=== PATIENT | male | born 1980 | race Caucasian/White ===

== ENCOUNTER 2024-07-14 18:03 | Emergency (ER) | payer BC, MEDICAID ==
[~2024-07-14] VITALS: Ht 175.3 cm; Wt 90.7 kg
[2024-07-14 19:17] LABS: Eosinophils # (auto) 0.1 10 ^3/uL (0-0.8); Eosinophils % (auto) 0.6 % (0.0-7.0); Hemoglobin 18.6 g/dL (13.5-17.5); Lymphocytes # (auto) 0.9 10 ^3/uL (0.4-5.4)
[2024-07-14 19:18] LABS: Basophils # (auto) 0 10 ^3/uL (0-0.2); Basophils % (auto) 0.2 % (0.0-2.0); Hematocrit 53.8 % (41.0-53.0); Lymphocytes % (auto) 4.4 % (10.0-50.0); Mean Corpuscular Hemoglobin 31.6 pg (28.0-32.0); Mean Corpuscular Hgb Conc. 34.5 g/dL (32.0-36.0); Mean Corpuscular Volume 91.4 fL (80.0-100.0); Monocytes # (auto) 0.9 10 ^3/uL (0-1.3); Monocytes % (auto) 4.1 % (0.0-12.0); Neutrophils % (auto) 90.7 % (37.0-80.0); Platelet Count (auto) 319 10^3/uL (140-450); Red Blood Cells 5.89 10^6/uL (4.5-5.90); Red Cell Distribution Width 13.8 % (11.8-14.3); White Blood Cell 20.9 10^3/uL (4.4-10.8)
[2024-07-14 19:27] LABS: Alanine Aminotransferase 123 U/L (7-40); Albumin 4.9 g/dL (3.2-4.8); Alkaline Phosphatase 73 U/L (46-116); Anion Gap 8 (5-15); Aspartate Aminotransferase 70 U/L (13-40); BUN/Creatinine Ratio 6.3 (10.0-20.0); Bilirubin, Total 0.4 mg/dL (0.2-1.0); Blood Urea Nitrogen 7 mg/dL (9-23); Calcium 10.2 mg/dL (8.7-10.4); Carbon Dioxide 23 mmol/L (20-30); Chloride 108 mmol/L (98-107); Glucose 144 mg/dL (74-106); Lipase 37 U/L (12-53); Potassium 4.3 mmol/L (3.5-5.1); Sodium 139 mmol/L (136-145); Total Protein 8.3 g/dL (5.7-8.2)
[2024-07-14] MEDS: levoFLOXacin 500MG 100 ML IV ONE (19:45)
[2024-07-14] MEDS: SODIUM CHLORIDE 0.9% 1,000 ML IV ONE (20:30)
[2024-07-14] MEDS: MORPHINE SULFATE 4 MG/ML SYR/VIAL IV ONE ×2 (20:30→21:59)
[2024-07-14] MEDS: ONDANSETRON HCL 4 MG/2 ML VIAL IV ONE ×2 (20:30→21:59)
[2024-07-14] MEDS: metroNIDAZOLE 500MG/100ML 100 ML IV ONE (21:11)
[2024-07-14 21:30] VITALS: PULSE 83; RESP 20; O2SAT 93
[2024-07-14 22:21] LABS: COVID19 ANTIGEN SOFIA FIA NEGATIVE (NEGATIVE)
[2024-07-14 23:00] VITALS: BP 115/74; PULSE 95; RESP 15; TEMP 97.6; O2SAT 92
== END 2024-07-14 23:16 | disposition short-term general hospital (02) ==
LOC: ER 18:03 → EEVIPCON 18:03 → ER 23:16
DX: K52.9 Noninfective gastroenteritis and colitis, unspecified (principal); Z20.822 Contact with and (suspected) exposure to COVID-19
CPT/HCPCS: 36415; 74176; 80053; 83690; 85025; 87426; 96365; 96367; 96375; 96376; 99285; J1956; J2270; J2405; J3490; J7030; 96361

== ENCOUNTER 2024-12-13 22:12 | Inpatient (IN) | payer BC, MEDICAID ==
[~2024-12-13] VITALS: Ht 175.3 cm; Wt 111.7 kg
[2024-12-13] MEDS: SODIUM CHLORIDE 0.9% 1,000 ML IV ONE (22:30)
--- NOTE | 2024-12-13 22:36 | ED.PDOC ---
GI ASSESSMENT HPI Comments 44-year-old male who came to ER for abdominal pain. Patient states about 2 hours ago, he developed sudden onset diffuse abdominal pain, associated both of nausea, vomiting, and loose nonbloody diarrhea. Patient was then started complaining of burning substernal chest pains. Patient has no history of abdominal surgeries Chief Complaint: Abdominal pain Time Seen by MD: 22:34 Primary Care Provider: ([place]) Reviewed Notes: Nurses Notes Allergies: Coded Allergies: NO KNOWN ALLERGIES (Unverified , 04/05/24) Information Source: Patient Mode of Arrival: Wheelchair Timing: Hours Duration: Since onset Prehospital treatment: None Quality: Cramping, Sharp Vomitus: Watery Stool: Loose, Watery Severity: Moderate Recent: None Pain Location: Diffuse Modifying Factors: Nothing Associated sign and symptoms: Nausea, Vomiting, Diarrhea, Abdominal Pain, Other (Chest pain) Past Medical History Past Medical History (Other): Diverticulitis Surgical History: Denies all surgeries Family History Family History: Reviewed,noncontributory to illness Social History Smoker: Non-Smoker Alcohol: Denies ETOH Use Drugs: Denies Drug Use Lives In: Home Constitutional: denies: chills, diaphoresis, fatigue, fever, malaise, sweats, weakness, others Respiratory: denies: cough, hemoptysis, orthopnea, SOB at rest, shortness of breath, SOB with excertion, stridor, wheezing, others Cardiovascular: reports: chest pain; denies: dizzy spells, diaphoresis, Dyspnea on exertion, edema, irregular heart beat, left arm pain, lightheadedness, palpitations, PND, syncope, others Gastrointestinal: reports: abdominal pain, diarrhea, nausea, vomiting; denies: abdomen distended, blood streaked bowels, constipated, dysphagia, difficulty swa llowing, hematemesis, melena, poor appetite, poor fluid intake, rectal bleeding, rectal pain, others Genitourinary: denies: burning, dysuria, flank pain, frequency, hematuria, incontinence, penile discharge, penile sore, pain, testicle pain, testicle swelling, urgency, others Neurological: denies: dizziness, fainting, headache, left sided numbness, left sided weakness, numbness, paresthesia, pre-existing deficit, right sided numbness, right sided weakness, seizure, speech problems, tingling, tremors, weakness, others Musculoskeletal: denies: back pain, gout, joint pain, joint swelling, muscle pain, muscle stiffness, neck pain, others Integumetry: denies: bruises, change in color, change in hair/nails, dryness, laceration, lesions, lumps, rash, wounds, others Allergic/Immunocompromised: denies: Difficulty Healing, Frequent Infections, Hives, Itching, others Hematologic/Lymphatic: denies: anemia, blood clots, easy bleeding, easy bruising, swollen glands, others Endocrine: denies: excessive hunger, excessive sweating, excessive thirst, excessive urination, flushing, intolerance to cold, intolerance to heat, unex plained weight gain, unexplained weight loss, others Psychiatric: denies: anxiety, bipolar disorder, depression, hopeless, panic disorder, schizophrenia, sleepless, suicidal, others Physical Exam General Appearance: No Apparent Distress, Normal HEENT: Normal ENT Inspection, Pharynx Normal, TMs Normal Neck: Full Range of Motion, Non-Tender, Normal, Normal Inspection Respiratory: Chest Non-Tender, Lungs Clear, No Accessory Muscle Use, No Respiratory Distress, Normal Breath Sounds Cardiovascular: No Edema, No JVD, No Murmur, No Gallop, Normal Peripheral Pulses, Regular Rate/Rhythm Breast Exam: Deferred Gastrointestinal: Diffuse, No Organomegaly, No Pulsatile Mass, Normal Bowel Sounds, Soft, Tenderness Genitalia: Deferred Pelvic: Deferred Rectal: Deferred Extremities: No calf tenderness, Normal capillary refill, Normal inspection, Normal range of motion, Non-tender, No pedal edema Musculoskeletal : Apperance: Normal Neurologic: Alert, corrections identification technician II-XII nml as Tested, No Motor Deficits, Normal Affect, Normal Mood, No Sensory Deficits Cerebellar Function: Normal Reflexes: Normal Skin: Dry, Normal Color, Warm Lymphatic: No Adenopathy Was a procedure done? Was a procedure done?: No GI differential Dx Differential Diagnosis: Cholecystitis, Diverticular disease, Gastritis/PUD, Gastroenteritis, Hernia, Pancreatitis, UTI, Urolithiasis, Dehydration, Electrolyte Imbalance, Food Poisoning X-Ray, Labs, Meds, VS Vital Signs Date Time Temp Pulse Resp B/P (MAP) Pulse Ox O2 Delivery O2 Flow Rate FiO2 12/14/24 01:11 98 20 125/77 12/14/24 00:28 74 18 115/60 12/14/24 00:00 86 12/13/24 23:27 98.0 72 22 115/60 (78) 96 98.0 12/13/24 22:25 76 12/13/24 22:17 98.2 82 20 117/61 (79) 97 Lab Test 12/14/24 00:37 12/13/24 23:17 12/13/24 22:20 Range/Units Lactic Acid Level 2.7 *H 2.6 *H 0.4-2.0 mmol/L Troponin I High Sensitivity 65 *H 67 *H </=54 ng/L White Blood Count 16.9 H 4.4-10.8 10^3/uL Red Blood Count 5.73 4.5-5.90 10^6/uL Hemoglobin 17.7 H 13.5-17.5 g/dL Hematocrit 51.8 41.0-53.0 % Mean Corpuscular Volume 90.4 80.0-100.0 fL Mean Corpuscular Hemoglobin 30.9 28.0-32.0 pg Mean Corpuscular Hemoglobin Concent 34.1 32.0-36.0 g/dL Red Cell Distribution Width 13.1 11.8-14.3 % Platelet Count 266 140-450 10^3/uL Mean Platelet Volume 7.6 6.9-10.8 fL Neutrophils (%) (Auto) 37.0-80.0 % Lymphocytes (%) (Auto) 10.0-50.0 % Monocytes (%) (Auto) 0.0-12.0 % Basophils (%) (Auto) 0.0-2.0 % Neutrophils # (Auto) 1.6-8.6 10 ^3/uL Lymphocytes # (Auto) 0.4-5.4 10 ^3/uL Monocytes # (Auto) 0-1.3 10 ^3/uL Differential Total Cells Counted 100.0 100 Neutrophils % (Manual) 90 H 37.0-80.0 Band Neutrophils % (Manual) 4 Lymphocytes % (Manual) 2 L 10.0-50.0 Monocytes % (Manual) 4 0-12 Eosinophils % (Manual) 0 0-7 Basophils % (Manual) 0 0.0-2.0 Metamyelocytes % (manual) 0 Myelocytes % (Manual) 0 Promyelocytes % (Manual) 0 Blast Cells % (Manual) 0 Reactive Lymphocytes 0 Platelet Estimate Adequate Clumped Platelets Few Sodium Level 138 136-145 mmol/L Potassium Level 4.3 3.5-5.1 mmol/L Chloride Level 106 98-107 mmol/L Carbon Dioxide Level 23 20-31 mmol/L Anion Gap 9 5-15 Blood Urea Nitrogen 12 9-23 mg/dL Creatinine 0.90 0.700-1.30 mg/dL Glomerular Filtration Rate Calc 109 >90 mL/min BUN/Creatinine Ratio 13.3 10.0-20.0 Serum Glucose 162 H 74-106 mg/dL Calcium Level 10.4 8.7-10.4 mg/dL Total Bilirubin 0.6 0.2-1.0 mg/dL Aspartate Amino Transferase (AST) 44 H 13-40 U/L Alanine Aminotransferase (ALT) 88 H 7-40 U/L Alkaline Phosphatase 56 46-116 U/L Total Protein 7.8 5.7-8.2 g/dL Albumin 4.7 3.2-4.8 g/dL Lipase 36 12-53 U/L Current Medications Medications (Trade) Dose Ordered Sig/Harmony Route Start Time Stop Time Status Last Admin Sodium Chloride 1,000 ml @ 1,000 mls/hr Q1H ONCE IV 12/13/24 22:30 12/13/24 23:29 DC 12/13/24 22:30 Ondansetron HCl (Zofran) 4 mg ONCE ONCE IV 12/13/24 22:30 12/13/24 22:31 DC 12/14/24 00:30 Pantoprazole Sodium (Protonix) 40 mg ONCE ONCE IV 12/13/24 22:30 12/13/24 22:31 DC 12/14/24 00:29 Morphine Sulfate 4 mg ONCE ONCE IV 12/13/24 22:30 12/13/24 22:31 DC 12/14/24 00:28 Time of 1ST Reevaluation: 22:29 Reevaluation 1ST: Unchanged Patient Education/Counseling: Diagnosis, Treatment Family Education/Counseling: No Family Present Departure 1 Departure Time of Disposition: 01:24 (Patient presented with chest pain that was concerning for possible STEMI, ACS, PE, Pneumonia, Muscle Strain, COPD, Dissection. Data: 1. I ordered and reviewed the result of at least 3 labs including a CBC, BMP, and Troponin. 2. I independently interpreted the following tests: EKG which shows _ sinus arrhythmia and Chest X-ray which shows benign chest.Risk:This patient has a high risk of morbidity due to further diagnostic testing or treatment and may suffer from an acute cardiac or respiratory disorder. Workup reveals elevated troponin, concern for ACS, concern for colitis and patient should be admitted for further workup and possible expert consulta tion. ) Impression: Primary Impression: Acute chest pain Additional Impressions: Projectile vomiting with nausea Colitis Dehydration Disposition: ADMITTED INPATIENT Admit to: Med Surg Condition: Serious Critical Care Note Critical Care Time?: No Stability Stability form required: No Heart Score Heart Score: Heart Score Response (Comments) Value History N/A 0 EKG N/A 0 Age N/A 0 Risk Factors N/A 0 Troponin N/A 0 Total 0 I personally scribed for KIRSTY ABEBE MD ([email or web address]) on 12/13/24 at 22:36. Electronically submitted by Marcelino Cummins ([email or web address]). KIRSTY ABEBE MD Dec 13, 2024 22:36
[2024-12-13 22:39] LABS: Hematocrit 51.8 % (41.0-53.0); Hemoglobin 17.7 g/dL (13.5-17.5); Mean Corpuscular Hemoglobin 30.9 pg (28.0-32.0); Mean Corpuscular Hgb Conc. 34.1 g/dL (32.0-36.0); Mean Corpuscular Volume 90.4 fL (80.0-100.0); Platelet Count (auto) 266 10^3/uL (140-450); Red Blood Cells 5.73 10^6/uL (4.5-5.90); Red Cell Distribution Width 13.1 % (11.8-14.3); White Blood Cell 16.9 10^3/uL (4.4-10.8)
[2024-12-13 22:42] LABS: Basophils % (manual) 0 (0.0-2.0); Blast Cells 0; Eosinophils % (manual) 0 (0-7); Metamyelocytes % 0; Myelocytes % 0; Promyelocytes % 0; Reactive Lymphocytes 0
[2024-12-13 23:01] LABS: Albumin 4.7 g/dL (3.2-4.8); Alkaline Phosphatase 56 U/L (46-116); Anion Gap 9 (5-15); BUN/Creatinine Ratio 13.3 (10.0-20.0); Bilirubin, Total 0.6 mg/dL (0.2-1.0); Blood Urea Nitrogen 12 mg/dL (9-23); Calcium 10.4 mg/dL (8.7-10.4); Carbon Dioxide 23 mmol/L (20-31); Chloride 106 mmol/L (98-107); Lipase 36 U/L (12-53); Potassium 4.3 mmol/L (3.5-5.1); Sodium 138 mmol/L (136-145); Total Protein 7.8 g/dL (5.7-8.2)
[2024-12-13 23:13] LABS: Alanine Aminotransferase 88 U/L (7-40); Aspartate Aminotransferase 44 U/L (13-40); Glucose 162 mg/dL (74-106); Lactic Acid w/Reflex 2.6 mmol/L (0.4-2.0)
[2024-12-13 23:24] LABS: Band Neutrophils % (manual) 4; Lymphocytes % (manual) 2 (10.0-50.0); Monocytes % (manual) 4 (0-12)
[2024-12-13 23:25] LABS: Platelet Estimate Adequate
[2024-12-13] MEDS: IOHEXOL 300 MG/ML 100ML BOTTLE IJ ONE (23:30)
[2024-12-14] VITALS (7 sets, daily range): BP systolic 88–129; BP diastolic 52–67; PULSE 61–102; RESP 16–20; TEMP 97.8–98.5; O2SAT 91–100
[2024-12-14] MEDS: MORPHINE SULFATE 4 MG/ML SYR/VIAL IV ONE ×3 (00:28→05:39)
[2024-12-14] MEDS: PANTOPRAZOLE 40 MG/10 ML VIAL INJ IV ONE (00:29)
[2024-12-14] MEDS: ONDANSETRON HCL 4 MG/2 ML VIAL IV ONE ×3 (00:30→05:35)
--- NOTE | 2024-12-14 00:45 | DVH ---
EXAM: XY CHEST PORTABLE CLINICAL HISTORY: severe abdominal pain TECHNIQUE: Single AP view of the chest WID: COMPARISON: CT abdomen same day CT abdomen pelvis from same day FINDINGS: Lines and tubes: None Chest: The heart size and pulmonary vasculature is within normal limits. No pleural effusion, pneumothorax, or consolidation. Linear scarring or atelectasis in the left lung base. Limited depth of inspiration. The osseous structures are grossly intact. IMPRESSION: No acute cardiopulmonary abnormality. Limited depth of inspiration.
--- NOTE | 2024-12-14 01:02 | DVH ---
CT OF THE ABDOMEN AND PELVIS WITH CONTRAST. HISTORY: severe abdominal pain COMPARISON: 07/14/2024 TECHNIQUE: Helical axial CT images of the abdomen and pelvis were obtained with intravenous contrast. Multiplanar reformats. One or more of the following radiation dose reduction techniques were used fo r this examination: automated exposure control, adjustment of the mA and/or kV according to patient s ize, use of iterative reconstruction technique. FINDINGS: Atelectasis/ scarring in the peripheral left lung base. Liver: No discrete hepatic lesions identified. Gallbladder and biliary system: Gallbladder is mildly distended. No sizable, radiopaque cholelithiasi s or biliary ductal dilatation. Pancreas: Negative. Spleen: Negative. Adrenal Glands: Negative. Kidneys and collecting system: No hydroureteronephrosis. Retroperitoneum: No evidence of abdominal aortic aneurysm. Lymph nodes: No discretely enlarged lymph nodes identified. Bowel: Small hiatal hernia. Fluid content in the small bowel as well as throughout the colon. No defi nite evidence to suggest bowel obstruction at this time. Sigmoid diverticulosis without definite CT e vidence of diverticulitis. Normal caliber appendix. No free intraperitoneal air or fluid identified. Pelvis: No sizable bladder calculus. Small fat containing left inguinal hernia. Osseous structures: Chronic appearing grade 2 anterolisthesis of L5 on S1 with bilateral pars defects . IMPRESSION: Fluid content in the small and large bowel is relatively nonspecific but can be seen with enteritis a s well as other malabsorptive conditions. Please correlate clinically. A few other findings as above. HS:Y
--- NOTE | 2024-12-14 02:03 | ECG ---
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
[2024-12-14] MEDS: SODIUM CHLORIDE 0.9% 1,000 ML IV ONE (05:07)
[2024-12-14] MEDS ORDERED: DOCUSATE SOD 100 MG CAP PO PRN (05:45)
[2024-12-14] MEDS: SODIUM CHLORIDE 0.9% 1,000 ML IV SCH (05:54)
[2024-12-14] MEDS: cefTRIAXone 1GM/50ML D5W 50 ML IV SCH (05:58)
[2024-12-14] MEDS ORDERED: NITROGLYCERIN 0.4 MG SL TAB SL PRN (06:15)
[2024-12-14] MEDS ORDERED: MORPHINE SULFATE INJ 2 MG/ml SYRG IV PRN (06:15)
--- NOTE | 2024-12-14 06:15 | DVHHP2 ---
History of Present Illness Reason for Visit: Acute chest pain History of Present Illness The patient is a 44-year-old male with past medical history diverticulitis presented to [facility] ED with complaint of abdominal pain. Patient reports symptoms progressively get worse with diffuse abdominal pain, associated nausea, nonbloody diarrhea, substernal chest pain, getting worse that prompted this visit. Patient was seen and evaluated in the ED, laboratory data shows WBC 16.9, platelets 266, sodium 138, potassium 4.3, BUN 12, creatinine 0.90, GFR 109, glucose 162, AST 44, ALT 88, lipase 36, troponin 65, lactic acid 2.6. Patient was started on IV antibiotic regimen Rocephin, given IV fluid normal saline, please see medication orders section in the computer. On my assessment, patient denies pain at this moment no headache, no dizziness, no nausea or vomiting at this moment, fever, no chills. Patient was admitted for further evaluation and medical management. Past Medical History Diverticulitis Past Surgical History Denies all surgeries Family History Reviewed, noncontributory to the management of this case. Past Social History The patient lives at home, denies smoking, alcohol or illicit drugs abuse. Review of Systems Constitutional: No: Fever, Chills, Sweats, Weakness, Malaise, Other Eyes: No: Pain, Vision change, Conjunctivae inflammation, Eyelid inflammation, Other, Redness ENT: No: Ear pain, Ear discharge, Nose pain, Nose discharge, Nose congestion, Mouth pain, Mouth swelling, Throat pain, Throat swelling, Other Respiratory: No: Cough, Dry, Shortness of breath, SOB with excertion, Wheezing, Hemoptysis, Pleuritic Pain, Sputum, Wheezing, Other Cardiovascular: Chest Pain; No: Palpitations, Orthopnea, Paroxysmal Noc. Dyspnea, Edema, Lt Headedness, Other Gastrointestinal: Nausea, Vomiting, Abdominal Pain, Diarrhea; No: Constipation, Melena, Hematochezia, Other Genitourinary: No Dysuria, No Frequency, No Incontinence, No Hematuria, No Retention, No Other Musculoskeletal: No: other, neck pain, shoulder pain, arm pain, back pain, hand pain, leg pain, foot pain Skin: No: Rash, Lesions, Jaundice, Bruising, Other Neurological: No: Weakness, Numbness, Incoordination, Change in speech, Confusion, Seizures, Other Allergies: Coded Allergies: NO KNOWN ALLERGIES (Unverified , 04/05/24) Medications Current Medications Medications Dose Ordered Sig/Harmony Route Start Time Stop Time Status Last Admin Dose Admin Ceftriaxone Sodium 50 ml @ 100 mls/hr DAILY@09 IV 12/14/24 06:00 12/14/24 05:58 100 MLS/HR Aspirin 81 mg DAILY PO 12/14/24 10:00 Ibuprofen 600 mg Q6HP PRN PO 12/14/24 05:45 Sodium Chloride 1,000 ml @ 60 mls/hr [id number] IV 12/14/24 05:45 12/14/24 05:54 60 MLS/HR Acetaminophen/ Hydrocodone Bitart 1 tab Q4HP PRN PO 12/14/24 05:45 Ondansetron HCl 4 mg Q4HP PRN IV 12/14/24 05:45 Docusate Sodium 100 mg BIDPRN PRN PO 12/14/24 05:45 Morphine Sulfate 2 mg Q4HPRN PRN IV 12/14/24 05:45 Exam Vital Signs Vital Signs Date Time Temp Pulse Resp B/P (MAP) Pulse Ox O2 Delivery O2 Flow Rate FiO2 12/14/24 05:39 101 25 113/69 12/14/24 05:12 98.1 95 98.1 General Appearance: Alert, Oriented X3, Cooperative, No acute distress HEENT: Atraumatic, PERRLA, EOMI, Mucous membr. moist/pink Respiratory: Clear to auscultation, Normal air movement Cardiovascular: Regular rate, Normal S1, Normal S2, No murmurs Abdominal: Normal bowel sounds, Soft, No tenderness, No hepatospenomegaly, No masses Extremities: No clubbing, No cyanosis, No edema, Normal pulses, No tenderness/swelling Skin: No rashes, No breakdown, No significant lesion Neuro: Normal speech, Normal tone, Sensation intact, Cranial nerves 3-12 NL, Reflexes 2+ Psych/Mental Status: Mental status NL, Mood NL Labs/Xrays Labs Test 12/14/24 01:25 12/14/24 00:37 12/13/24 22:20 Range/Units Troponin I High Sensitivity 57 *H </=54 ng/L Lactic Acid Level 2.7 *H 0.4-2.0 mmol/L White Blood Count 16.9 H 4.4-10.8 10^3/uL Red Blood Count 5.73 4.5-5.90 10^6/uL Hemoglobin 17.7 H 13.5-17.5 g/dL Hematocrit 51.8 41.0-53.0 % Mean Corpuscular Volume 90.4 80.0-100.0 fL Mean Corpuscular Hemoglobin 30.9 28.0-32.0 pg Mean Corpuscular Hemoglobin Concent 34.1 32.0-36.0 g/dL Red Cell Distribution Width 13.1 11.8-14.3 % Platelet Count 266 140-450 10^3/uL Mean Platelet Volume 7.6 6.9-10.8 fL Neutrophils (%) (Auto) 37.0-80.0 % Lymphocytes (%) (Auto) 10.0-50.0 % Monocytes (%) (Auto) 0.0-12.0 % Basophils (%) (Auto) 0.0-2.0 % Neutrophils # (Auto) 1.6-8.6 10 ^3/uL Lymphocytes # (Auto) 0.4-5.4 10 ^3/uL Monocytes # (Auto) 0-1.3 10 ^3/uL Differential Total Cells Counted 100.0 100 Neutrophils % (Manual) 90 H 37.0-80.0 Band Neutrophils % (Manual) 4 Lymphocytes % (Manual) 2 L 10.0-50.0 Monocytes % (Manual) 4 0-12 Eosinophils % (Manual) 0 0-7 Basophils % (Manual) 0 0.0-2.0 Metamyelocytes % (manual) 0 Myelocytes % (Manual) 0 Promyelocytes % (Manual) 0 Blast Cells % (Manual) 0 Reactive Lymphocytes 0 Platelet Estimate Adequate Clumped Platelets Few Sodium Level 138 136-145 mmol/L Potassium Level 4.3 3.5-5.1 mmol/L Chloride Level 106 98-107 mmol/L Carbon Dioxide Level 23 20-31 mmol/L Anion Gap 9 5-15 Blood Urea Nitrogen 12 9-23 mg/dL Creatinine 0.90 0.700-1.30 mg/dL Glomerular Filtration Rate Calc 109 >90 mL/min BUN/Creatinine Ratio 13.3 10.0-20.0 Serum Glucose 162 H 74-106 mg/dL Calcium Level 10.4 8.7-10.4 mg/dL Total Bilirubin 0.6 0.2-1.0 mg/dL Aspartate Amino Transferase (AST) 44 H 13-40 U/L Alanine Aminotransferase (ALT) 88 H 7-40 U/L Alkaline Phosphatase 56 46-116 U/L Total Protein 7.8 5.7-8.2 g/dL Albumin 4.7 3.2-4.8 g/dL Lipase 36 12-53 U/L Assessment/Plan Assessment/Plan Acute chest pain Projectile vomiting with nausea Colitis Dehydration Leukocytosis, unspecified Elevated liver enzymes Plan 1. Admit to telemetry unit 2. Breathing treatment 3. Pain control management 4. IV antibiotic management 5. Management of fluids and electrolytes 6. Consultation for hospitalist 7. Diagnostic test chest x-ray 8. DVT prophylaxis-on SCDs 9. Repeat labs CBC, CMP in a.m. 10. Continue with current medical management 11. Treatment plan discussed with patient and RN. Patient verbalized underst anding. Plan discussed with: Patient, Other (RN) My Orders Orders - SUNSHINE ARELLANO DNP Procedure Category Date Status Time Blood Culture TIFFANY 12/14/24 Logged 05:45 Ceftriaxone 1gm/50ml PHA 12/14/24 In Process D5w (Rocephin) 06:00 Aspirin Tablet PHA 12/14/24 In Process 10:00 Ibuprofen Tablet PHA 12/14/24 In Process (Motrin Tablet) 05:45 Allergies NEDRA 12/14/24 In Process 05:45 Code Status CODE 12/14/24 Transmitted 05:45 Sodium Chloride 0.9% PHA 12/14/24 In Process 05:45 Oxygen Per Hour RT 12/14/24 Transmitted 05:45 Hydrocodone-Acet PHA 12/14/24 In Process 5/325mg Tab (Lacarne 05:45 Ondansetron Hcl PHA 12/14/24 In Process (Zofran) 05:45 Docusate Sodium PHA 12/14/24 In Process Capsule (Colace 05:45 Complete Blood Count LAB 12/15/24 Verified 04:00 Comprehensive LAB 12/15/24 Verified Metabolic Panel 04:00 Cardiac DIET 12/14/24 Transmitted Diet-2gna,Lofat,Lochol Breakfast Condition: Serious NEDRA 12/14/24 In Process 05:45 Bedrest With Bathroom NEDRA 12/14/24 In Process Privileg 05:45 Morphine Sulfate PHA 12/14/24 In Process Injection 05:45 Sequential NEDRA 12/14/24 In Process Compression Device Complete Blood Count LAB 12/14/24 Verified 06:14 Comprehensive LAB 12/14/24 Verified Metabolic Panel 06:14 Admit ADMIT 12/14/24 Verified 06:14 Nitroglycerin [facility] 12/14/24 Verified Sublingual (Ntrostat 06:15 Morphine Sulfate [facility] 12/14/24 Verified Injection 06:15 Notify Md Of Changes [facility] 12/14/24 Verified From Base 06:14 Biomed Tech For [facility] 12/14/24 Verified 24 Hours 06:14 Emergency Dysrhythmia [facility] 12/14/24 Verified Protocol 06:14 Rhythm Strips Once [facility] 12/14/24 Verified Every Shift 06:14 Oxygen By Nasal RT 12/14/24 Verified Cannula 06:14 Problem List: (1) Acute chest pain (2) Colitis (3) Dehydration (4) Elevated liver enzymes (5) Leukocytosis, unspecified (6) Projectile vomiting with nausea Date of Service: Dec 14, 2024 Billing Provider: SUNSHINE ARELLANO DNP Common Visit Codes: [id number] INP/OBS CARE (HIGH) SUNSHINE ARELLANO DNP Dec 14, 2024 06:15
[2024-12-14 07:43] LABS: Basophils # (auto) 0 10 ^3/uL (0-0.2); Basophils % (auto) 0.1 % (0.0-2.0); Eosinophils # (auto) 0 10 ^3/uL (0-0.8); Eosinophils % (auto) 0.1 % (0.0-7.0); Hematocrit 46.5 % (41.0-53.0); Hemoglobin 15.7 g/dL (13.5-17.5); Lymphocytes # (auto) 0.2 10 ^3/uL (0.4-5.4); Lymphocytes % (auto) 1.7 % (10.0-50.0); Mean Corpuscular Hemoglobin 30.8 pg (28.0-32.0); Mean Corpuscular Hgb Conc. 33.9 g/dL (32.0-36.0); Mean Corpuscular Volume 90.9 fL (80.0-100.0); Monocytes # (auto) 0.5 10 ^3/uL (0-1.3); Monocytes % (auto) 3.6 % (0.0-12.0); Neutrophils # (auto) 12.9 10 ^3/uL (1.6-8.6); Neutrophils % (auto) 94.5 % (37.0-80.0); Platelet Count (auto) 255 10^3/uL (140-450); Red Blood Cells 5.11 10^6/uL (4.5-5.90); Red Cell Distribution Width 13.5 % (11.8-14.3); White Blood Cell 13.6 10^3/uL (4.4-10.8)
[2024-12-14 07:55] LABS: Albumin 4.2 g/dL (3.2-4.8); Anion Gap 11 (5-15); Aspartate Aminotransferase 31 U/L (13-40); Bilirubin, Total 0.5 mg/dL (0.2-1.0); Blood Urea Nitrogen 15 mg/dL (9-23); Calcium 8.8 mg/dL (8.7-10.4); Carbon Dioxide 23 mmol/L (20-31); Potassium 3.9 mmol/L (3.5-5.1); Sodium 141 mmol/L (136-145); Total Protein 6.7 g/dL (5.7-8.2)
[2024-12-14 07:57] LABS: Alanine Aminotransferase 67 U/L (7-40); Alkaline Phosphatase 41 U/L (46-116); Chloride 107 mmol/L (98-107); Glucose 157 mg/dL (74-106)
[2024-12-14] MEDS: ASPirin 81 mg TAB PO SCH (09:46)
[2024-12-14] MEDS: HYDROcodone-ACET 5/325MG TAB PO PRN (09:47)
[2024-12-14 10:30] LABS: Lactic Acid w/Reflex 2.4 mmol/L (0.4-2.0)
[2024-12-14] MEDS ORDERED: TRAZ-181 PO (10:34)
[2024-12-14] MEDS ORDERED: SERT100T PO (10:34)
[2024-12-14] MEDS: SERTRALINE HCL 50 MG TAB PO ONE (11:47)
--- NOTE | 2024-12-14 11:58 | DVHPN2 ---
Subjective Patient seems him at bedside. Still complain of abdominal pain and chest pain. Reviewed: Care Plan, H&P, Labs, Medications, Previous Orders, Radiology Changes from previous H/P or p: No Changes Eyes: No Pain, No Vision change, No Conjunctivae inflammation, No Eyelid inflammation, No Other, No Redness ENT: No Ear pain, No Ear discharge, No Nose pain, No Nose discharge, No Nose congestion, No Mouth pain, No Mouth swelling, No Throat pain, No Throat swelling, No Other Cardiovascular: Chest Pain; No Palpitations, No Orthopnea, No Paroxysmal Noc. Dyspnea, No Edema, No Lt Headedness, No Other Respiratory: No Cough, No Dry, No Shortness of breath, No SOB with excertion, No Wheezing, No Hemoptysis, No Pleuritic Pain, No Sputum, No Other Gastrointestinal: Nausea, Vomiting, Abdominal Pain, Diarrhea; No Constipation, No Melena, No Hematochezia, No Other Genitourinary: No Dysuria, No Frequency, No Incontinence, No Hematuria, No Retention, No Other Musculoskeletal: No other, No neck pain, No shoulder pain, No arm pain, No back pain, No hand pain, No leg pain, No foot pain Skin: No Rash, No Lesions, No Jaundice, No Bruising, No Other Objective Vitals Vital Signs Date Time Temp Pulse Resp B/P (MAP) Pulse Ox O2 Delivery O2 Flow Rate FiO2 12/14/24 09:40 97.9 98 20 103/62 (76) 95 97.9 12/14/24 09:34 Nasal Cannula* 2 28 Intake/Output Intake and Output 12/14/24 07:00 Intake Total 110 ml Balance 110 ml Intake IV Total 110 ml General Appearance: Alert, Oriented X3, Cooperative HEENT: Atraumatic, PERRLA, EOMI, Mucous membr. moist/pink Neck: Supple Cardiovascular: Regular rate, Normal S1, Normal S2, No murmurs, Gallops, Rubs Abdomen: Normal bowel sounds, Soft, No tenderness Neuro: Cranial nerves 3-12 NL Psych/Mental Status: Mental status NL Medications Current Medications Medications Dose Ordered Sig/Harmony Route Start Time Stop Time Status Last Admin Dose Admin Ceftriaxone Sodium 50 ml @ 100 mls/hr DAILY@09 IV 12/14/24 06:00 12/14/24 05:58 100 MLS/HR Aspirin 81 mg DAILY PO 12/14/24 10:00 12/14/24 09:46 81 MG Ibuprofen 600 mg Q6HP PRN PO 12/14/24 05:45 Sodium Chloride 1,000 ml @ 60 mls/hr [id number] IV 12/14/24 05:45 12/14/24 05:54 60 MLS/HR Acetaminophen/ Hydrocodone Bitart 1 tab Q4HP PRN PO 12/14/24 05:45 12/14/24 09:47 1 TAB Ondansetron HCl 4 mg Q4HP PRN IV 12/14/24 05:45 Docusate Sodium 100 mg BIDPRN PRN PO 12/14/24 05:45 Morphine Sulfate 2 mg Q4HPRN PRN IV 12/14/24 05:45 Nitroglycerin 0.4 mg Q5MINP PRN SL 12/14/24 06:15 Morphine Sulfate 2 mg Q30M PRN IV 12/14/24 06:15 Sertraline HCl 100 mg DAILY PO 12/15/24 10:00 Laboratory Results Laboratory Tests 12/14/24 06:52 Chemistry Test 12/13/24 22:20 12/14/24 06:52 Albumin 4.7 g/dL (3.2-4.8) 4.2 g/dL (3.2-4.8) Calcium Level 10.4 mg/dL (8.7-10.4) 8.8 mg/dL (8.7-10.4) Total Protein 7.8 g/dL (5.7-8.2) 6.7 g/dL (5.7-8.2) Lipid panel Test 12/13/24 22:20 Lipase 36 U/L (12-53) LFT Test 12/13/24 22:20 12/14/24 06:52 Alanine Aminotransferase (ALT) 88 U/L (7-40) H 67 U/L (7-40) H Alkaline Phosphatase 56 U/L (46-116) 41 U/L (46-116) L Aspartate Amino Transferase (AST) 44 U/L (13-40) H 31 U/L (13-40) Total Bilirubin 0.6 mg/dL (0.2-1.0) 0.5 mg/dL (0.2-1.0) Labs and/or images reviewed: Labs reviewed by me Assessment/Plan Assessment/Plan Acute chest pain Projectile vomiting with nausea Colitis Dehydration Leukocytosis, unspecified Elevated liver enzymes Continuing current management. Continuing with aspirin. Continuing with Zofran. Continuing with antibiotic. Continuing with IV fluid. Waiting for ex chef and GI specialist to see the patient. This medical document was created using an electronic medical record system with [employer] computerized dictation system. Although this document has been carefully reviewed, there may still be some phonetic and typographical errors. These areas are purely typographical due to imperfections of the software programs, and do not reflect any compromise in the patient's medical care. Plan discussed with: Patient My Orders Orders - DEMETRICE HUGGINS MD Procedure Category Date Status Time Sertraline Hcl PHA 12/15/24 In Process (Zoloft) 10:00 Date of Service: Dec 14, 2024 Billing Provider: DEMETRICE HUGGINS MD Common Visit Codes: [id number] INP/OBS CARE(HIGH) DEMETRICE HUGGINS MD Dec 14, 2024 11:58
[2024-12-14] MEDS: MORPHINE SULFATE INJ 2 MG/ml SYRG IV PRN (16:40)
[2024-12-14] MEDS: ONDANSETRON HCL 4 MG/2 ML VIAL IV PRN (16:40)
[2024-12-14] MEDS: GASTROGRAFIN 30 ML SOL ONE (18:26)
--- NOTE | 2024-12-14 18:50 | DVHINCON2 ---
Date of service: Dec 14, [address] Lomax Reason for Consultation Abdominal pain History of Present Illness This 44-year-old male is admitted with the complaints abdominal pain both lower quadrants especially in the left side with associated nausea and some diarrhea No ulcers some substernal chest pain to begin with. Patient's white count was found to be 16.9 AST ALT were some minimally elevated lipase was normal 36. Denied a CT scan done of the abdomen which showed some fluid levels in both the small and large bowels. 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 Allergies: Coded Allergies: NO KNOWN ALLERGIES (Unverified , 04/05/24) Home Meds Reported Medications Sertraline Hcl (Zoloft) 100 Mg Tab, 1 TAB PO DAILY, #30 TAB 5 Refills 12/14/24 Trazodone HCl (Trazodone Hydrochloride) 50 Mg Tab, 50 MG PO HS PRN for FOR INSOMNIA, TAB 12/14/24 Current Medications Current Medications Medications (Trade) Dose Ordered Sig/Harmony Route PRN Reason Start Time Stop Time Status Last Admin Ceftriaxone Sodium 50 ml @ 100 mls/hr DAILY@09 IV 12/14/24 06:00 12/14/24 05:58 Aspirin 81 mg DAILY PO 12/14/24 10:00 12/14/24 09:46 Ibuprofen (Motrin Tablet) 600 mg Q6HP PRN PO PAIN SCALE 1-3 OR TEMP>100.4 12/14/24 05:45 Sodium Chloride 1,000 ml @ 60 mls/hr [id number] IV 12/14/24 05:45 12/14/24 05:54 Acetaminophen/ Hydrocodone Bitart ([place] 5/325MG Tab) 1 tab Q4HP PRN PO MODERATE PAIN (4-6 PAIN SCALE) 12/14/24 05:45 12/14/24 09:47 Ondansetron HCl (Zofran) 4 mg Q4HP PRN IV NAUSEA / VOMITING 12/14/24 05:45 12/14/24 16:40 Docusate Sodium (Colace Capsule) 100 mg BIDPRN PRN PO FOR CONSTIPATION 12/14/24 05:45 Morphine Sulfate 2 mg Q4HPRN PRN IV SEVERE PAIN (7-10 PAIN SCALE) 12/14/24 05:45 12/14/24 16:40 Nitroglycerin (Ntrostat Sublingual) 0.4 mg Q5MINP PRN SL FOR CHEST PAIN 12/14/24 06:15 Morphine Sulfate 2 mg Q30M PRN IV FOR CHEST PAIN 12/14/24 06:15 Sertraline HCl (Zoloft) 100 mg DAILY PO 12/15/24 10:00 Metronidazole 100 ml @ 100 mls/hr Q8HR IV 12/14/24 22:00 Review of Systems Noncontributory Vital Signs Vital Signs Date Time Temp Pulse Resp B/P (MAP) Pulse Ox O2 Delivery O2 Flow Rate FiO2 12/14/24 17:00 98.1 74 16 88/52 (64) 100 98.1 12/14/24 09:34 Nasal Cannula* 2 28 Physical Exam Moderately built and nourished male in no acute distress Vitals stable HEENT examination normal no pallor no icterus Lungs clear Cardiovascular unremarkable Abdomen is soft mild tenderness in both lower quadrants especially in the left lower quadrant no rigidity no guarding no masses Bowel Sounds normal Extremities no edema Neuro grossly intact Labs/Diagnostic Data Labs Test 12/14/24 06:52 12/14/24 01:25 12/13/24 22:20 Range/Units White Blood Count 13.6 H 4.4-10.8 10^3/uL Red Blood Count 5.11 4.5-5.90 10^6/uL Hemoglobin 15.7 13.5-17.5 g/dL Hematocrit 46.5 # 41.0-53.0 % Mean Corpuscular Volume 90.9 80.0-100.0 fL Mean Corpuscular Hemoglobin 30.8 28.0-32.0 pg Mean Corpuscular Hemoglobin Concent 33.9 32.0-36.0 g/dL Red Cell Distribution Width 13.5 11.8-14.3 % Platelet Count 255 140-450 10^3/uL Mean Platelet Volume 8.0 6.9-10.8 fL Neutrophils (%) (Auto) 94.5 H 37.0-80.0 % Lymphocytes (%) (Auto) 1.7 L 10.0-50.0 % Monocytes (%) (Auto) 3.6 0.0-12.0 % Eosinophils (%) (Auto) 0.1 0.0-7.0 % Basophils (%) (Auto) 0.1 0.0-2.0 % Neutrophils # (Auto) 12.9 H 1.6-8.6 10 ^3/uL Lymphocytes # (Auto) 0.2 L 0.4-5.4 10 ^3/uL Monocytes # (Auto) 0.5 0-1.3 10 ^3/uL Eosinophils # (Auto) 0 0-0.8 10 ^3/uL Basophils # (Auto) 0 0-0.2 10 ^3/uL Nucleated Red Blood Cells 0.0 % Sodium Level 141 136-145 mmol/L Potassium Level 3.9 3.5-5.1 mmol/L Chloride Level 107 98-107 mmol/L Carbon Dioxide Level 23 20-31 mmol/L Anion Gap 11 5-15 Blood Urea Nitrogen 15 9-23 mg/dL Creatinine 1.00 0.700-1.30 mg/dL Glomerular Filtration Rate Calc 96 >90 mL/min BUN/Creatinine Ratio 15.0 10.0-20.0 Serum Glucose 157 H 74-106 mg/dL Lactic Acid Level 2.4 *H 0.4-2.0 mmol/L Calcium Level 8.8 8.7-10.4 mg/dL Total Bilirubin 0.5 0.2-1.0 mg/dL Aspartate Amino Transferase (AST) 31 13-40 U/L Alanine Aminotransferase (ALT) 67 H 7-40 U/L Alkaline Phosphatase 41 L 46-116 U/L Total Protein 6.7 5.7-8.2 g/dL Albumin 4.2 3.2-4.8 g/dL Troponin I High Sensitivity 57 *H </=54 ng/L Differential Total Cells Counted 100.0 100 Neutrophils % (Manual) 90 H 37.0-80.0 Band Neutrophils % (Manual) 4 Lymphocytes % (Manual) 2 L 10.0-50.0 Monocytes % (Manual) 4 0-12 Eosinophils % (Manual) 0 0-7 Basophils % (Manual) 0 0.0-2.0 Metamyelocytes % (manual) 0 Myelocytes % (Manual) 0 Promyelocytes % (Manual) 0 Blast Cells % (Manual) 0 Reactive Lymphocytes 0 Platelet Estimate Adequate Clumped Platelets Few Lipase 36 12-53 U/L Assessment 44-year-old with complaints of abdominal pain both lower quadrants especially in the left side in left lower quadrant with associated nausea anorexia some diarrhea which but no bleeding history of diverticulitis in the past history of normal colon except for polyps in the reason past. Physical examination there is tenderness is left lower quadrant. White count was increased ALT AST are minimally increased lipase is 36 clinical impression is possible acute diverti culitis with the possibility of gastroenteritis or other pathology also can not be excluded Plan/Recommendation We will continue treatment with antibiotics we will also add Flagyl to the regimen Low-fiber diet We will also recommend to repeat the CT scan with oral contrast since the last one was without oral contrast to assess any acute diverticular abscess or other pathology to account for the persistent symptoms despite antibiotics in view of the history of acute diverticulitis a few times in the past Thank you Dr. Comer Plan discussed with: Patient ABRAHAM COMER MD Dec 14, 2024 18:50
--- NOTE | 2024-12-14 20:59 | DVH ---
Exam: CT CT AB PEL WITH ORAL CON ONLY History: abd pain Comparison Study: CT CT AB PEL WITH IV CON ONLY on DOS: 12/14/24, CT CT AB PEL WO CON-NO ORAL OR IV on DOS: 07/14/24, CT CT AB PEL WO CON-NO ORAL OR IV on DOS: 04/05/24 TECHNIQUE: A digital assembler wire group image was obtained. During the uneventful, oral administration of contrast material, multislice data acquisition was obtained through the abdomen and pelvis. The data set was subsequently reconstructed into axial images. Images reviewed on a wrist examination is an examinatio n of axial and multiplanar reformations using a variety of window levels and settings. RADIATION DOSE: DLP 1442.99 mGy.cm; CTDI vol 22.35 mGy. Findings: Lungs: The lung bases are clear. Heart: No cardiomegaly or pericardial effusion. Liver: Unremarkable. Gallbladder: Unremarkable. Spleen: Unremarkable Pancreas: Unremarkable Adrenals: Unremarkable Kidneys: Unremarkable GI tract: Diverticulosis without evidence of acute diverticulitis. : Unremarkable. Vasculature: Unremarkable Lymphadenopathy: Nonenlarged retroperitoneal lymph nodes. Peritoneum: No ascites Musculoskeletal: Mild multilevel degenerative changes of the thoracolumbar spine. Severe degenerative disc disease at L5/S1 with grade 1/2 anterolisthesis of L5 on S1 and pars defects of L5. Soft tissues: Unremarkable Impression: 1. No acute abdominopelvic abnormalities. 2. No evidence of obstruction. 3. Diverticulosis without evidence of acute diverticulitis. 4. Nonenlarged retroperitoneal lymph nodes, nonspecific but favored reactive.
[2024-12-14] MEDS: metroNIDAZOLE 500MG/100ML 100 ML IV SCH (21:35)
[2024-12-15] VITALS (8 sets, daily range): BP systolic 115–130; BP diastolic 53–77; PULSE 61–81; RESP 16–18; TEMP 98.1–98.8; O2SAT 91–96
[2024-12-15 06:32] LABS: Basophils # (auto) 0 10 ^3/uL (0-0.2); Basophils % (auto) 0.2 % (0.0-2.0); Eosinophils # (auto) 0.2 10 ^3/uL (0-0.8); Eosinophils % (auto) 2.8 % (0.0-7.0); Hematocrit 43.7 % (41.0-53.0); Hemoglobin 15.1 g/dL (13.5-17.5); Lymphocytes # (auto) 1.2 10 ^3/uL (0.4-5.4); Lymphocytes % (auto) 15.7 % (10.0-50.0); Mean Corpuscular Hemoglobin 31.3 pg (28.0-32.0); Mean Corpuscular Hgb Conc. 34.5 g/dL (32.0-36.0); Mean Corpuscular Volume 90.7 fL (80.0-100.0); Monocytes # (auto) 0.7 10 ^3/uL (0-1.3); Monocytes % (auto) 9.3 % (0.0-12.0); Neutrophils # (auto) 5.4 10 ^3/uL (1.6-8.6); Platelet Count (auto) 237 10^3/uL (140-450); Red Blood Cells 4.82 10^6/uL (4.5-5.90); Red Cell Distribution Width 13.1 % (11.8-14.3); White Blood Cell 7.5 10^3/uL (4.4-10.8)
[2024-12-15 06:55] LABS: Anion Gap 8 (5-15); Carbon Dioxide 27 mmol/L (20-31); Chloride 104 mmol/L (98-107); Lipase 23 U/L (12-53); Potassium 3.7 mmol/L (3.5-5.1); Sodium 139 mmol/L (136-145)
[2024-12-15 06:57] LABS: Albumin 3.9 g/dL (3.2-4.8); Bilirubin, Total 0.4 mg/dL (0.2-1.0); Total Protein 6.4 g/dL (5.7-8.2)
[2024-12-15 07:00] LABS: Alanine Aminotransferase 79 U/L (7-40); Alkaline Phosphatase 36 U/L (46-116); Aspartate Aminotransferase 50 U/L (13-40); Blood Urea Nitrogen 6 mg/dL (9-23); Glucose 115 mg/dL (74-106)
[2024-12-15] MEDS: SERTRALINE HCL 50 MG TAB PO SCH (09:45)
[2024-12-15] MEDS: IBUPROFEN 600 MG TAB PO PRN (09:57)
--- NOTE | 2024-12-15 13:03 | DVHPN2 ---
Progress Note - Dictate Date Seen: Dec 15, 2024 Subjective Still has got some complaints of abdominal pains in the left lower quadrant No fever no diarrhea no bleeding vital signs Vital Sign Date Time Temp Pulse Resp B/P (MAP) Pulse Ox O2 Delivery O2 Flow Rate FiO2 12/15/24 09:00 98.1 76 18 116/53 (74) 94 98.1 12/15/24 08:00 Room Air* 0 21 Total Intake and Output 12/14/24 12/14/24 12/15/24 15:00 23:00 07:00 Intake Total 1190 ml 1450 ml Balance 1190 ml 1450 ml medications Current Medications Medications Dose Ordered Sig/Harmony Route Start Time Stop Time Status Last Admin Dose Admin Ceftriaxone Sodium 50 ml @ 100 mls/hr DAILY@09 IV 12/14/24 06:00 12/15/24 09:45 100 MLS/HR Aspirin 81 mg DAILY PO 12/14/24 10:00 12/15/24 09:45 81 MG Ibuprofen 600 mg Q6HP PRN PO 12/14/24 05:45 12/15/24 09:57 600 MG Sodium Chloride 1,000 ml @ 60 mls/hr [id number] IV 12/14/24 05:45 12/14/24 22:25 60 MLS/HR Acetaminophen/ Hydrocodone Bitart 1 tab Q4HP PRN PO 12/14/24 05:45 12/15/24 06:53 1 TAB Ondansetron HCl 4 mg Q4HP PRN IV 12/14/24 05:45 12/14/24 16:40 4 MG Docusate Sodium 100 mg BIDPRN PRN PO 12/14/24 05:45 Morphine Sulfate 2 mg Q4HPRN PRN IV 12/14/24 05:45 12/15/24 04:25 2 MG Nitroglycerin 0.4 mg Q5MINP PRN SL 12/14/24 06:15 Morphine Sulfate 2 mg Q30M PRN IV 12/14/24 06:15 Sertraline HCl 100 mg DAILY PO 12/15/24 10:00 12/15/24 09:45 100 MG Metronidazole 100 ml @ 100 mls/hr Q8HR IV 12/14/24 22:00 12/15/24 05:55 100 MLS/HR Trazodone HCl 50 mg QHSP PRN PO 12/15/24 03:15 objective Abdomen is soft tenderness in the left lower quadrant no rigidity no guarding No masses felt Repeat CT scan with oral contrast failed to reveal any obstruction no diverticulitis but there is only just diverticulosis Lipase is normal laboratory and microbiology Laboratory Tests 12/15/24 05:58 Test 12/15/24 05:58 Range/Units Serum Glucose 115 H 74-106 mg/dL Assessment/Plan Patient has got still abdominal pain We will diverticulitis to be considered Stool studies have been ordered for O&P C&S and C diff Has been collected we will watch for the results we will recommend to continue with the antibiotics and symptomatic treatment for now Times persist may need further evaluations as necessary including surgical consult and MRI etc. Thank you Dr. Souleymane Bahtia discussed with: Patient ABRAHAM CUNNINGHAM MD Dec 15, 2024 13:03
--- NOTE | 2024-12-15 15:02 | DVHPN2 ---
Subjective The patient is seen and examined at bedside. Abdominal pain seemed to improve. Waiting for stress test. Reviewed: Care Plan, H&P, Labs, Medications, Previous Orders, Radiology Changes from previous H/P or p: No Changes Eyes: No Pain, No Vision change, No Conjunctivae inflammation, No Eyelid inflammation, No Other, No Redness ENT: No Ear pain, No Ear discharge, No Nose pain, No Nose discharge, No Nose congestion, No Mouth pain, No Mouth swelling, No Throat pain, No Throat swelling, No Other Cardiovascular: Chest Pain; No Palpitations, No Orthopnea, No Paroxysmal Noc. Dyspnea, No Edema, No Lt Headedness, No Other Respiratory: No Cough, No Dry, No Shortness of breath, No SOB with excertion, No Wheezing, No Hemoptysis, No Pleuritic Pain, No Sputum, No Other Gastrointestinal: Nausea, Vomiting, Abdominal Pain, Diarrhea; No Constipation, No Melena, No Hematochezia, No Other Genitourinary: No Dysuria, No Frequency, No Incontinence, No Hematuria, No Retention, No Other Musculoskeletal: No other, No neck pain, No shoulder pain, No arm pain, No back pain, No hand pain, No leg pain, No foot pain Skin: No Rash, No Lesions, No Jaundice, No Bruising, No Other Objective Vitals Vital Signs Date Time Temp Pulse Resp B/P (MAP) Pulse Ox O2 Delivery O2 Flow Rate FiO2 12/15/24 13:00 98.1 61 16 130/77 (94) 91 98.1 12/15/24 08:00 Room Air* 0 21 Intake/Output Intake and Output 12/15/24 07:00 Intake Total 2640 ml Balance 2640 ml Intake Oral 1600 ml IV Total 1040 ml # Voids 3 # Bowel Movements 3 General Appearance: Alert, Oriented X3, Cooperative, No acute distress HEENT: Atraumatic, PERRLA, EOMI, Mucous membr. moist/pink Neck: Supple Lungs: Clear to auscultation, Normal air movement Cardiovascular: Regular rate, Normal S1, Normal S2, No murmurs, Gallops, Rubs Abdomen: Normal bowel sounds, Soft, No tenderness Neuro: Cranial nerves 3-12 NL Psych/Mental Status: Mental status NL Medications Current Medications Medications Dose Ordered Sig/Harmony Route Start Time Stop Time Status Last Admin Dose Admin Ceftriaxone Sodium 50 ml @ 100 mls/hr DAILY@09 IV 12/14/24 06:00 12/15/24 09:45 100 MLS/HR Aspirin 81 mg DAILY PO 12/14/24 10:00 12/15/24 09:45 81 MG Ibuprofen 600 mg Q6HP PRN PO 12/14/24 05:45 12/15/24 09:57 600 MG Sodium Chloride 1,000 ml @ 60 mls/hr [id number] IV 12/14/24 05:45 12/14/24 22:25 60 MLS/HR Acetaminophen/ Hydrocodone Bitart 1 tab Q4HP PRN PO 12/14/24 05:45 12/15/24 06:53 1 TAB Ondansetron HCl 4 mg Q4HP PRN IV 12/14/24 05:45 12/14/24 16:40 4 MG Docusate Sodium 100 mg BIDPRN PRN PO 12/14/24 05:45 Morphine Sulfate 2 mg Q4HPRN PRN IV 12/14/24 05:45 12/15/24 04:25 2 MG Nitroglycerin 0.4 mg Q5MINP PRN SL 12/14/24 06:15 Morphine Sulfate 2 mg Q30M PRN IV 12/14/24 06:15 Sertraline HCl 100 mg DAILY PO 12/15/24 10:00 12/15/24 09:45 100 MG Metronidazole 100 ml @ 100 mls/hr Q8HR IV 12/14/24 22:00 12/15/24 13:40 100 MLS/HR Trazodone HCl 50 mg QHSP PRN PO 12/15/24 03:15 Laboratory Results Laboratory Tests 12/15/24 05:58 Chemistry Test 12/15/24 05:58 Albumin 3.9 g/dL (3.2-4.8) Calcium Level 9.0 mg/dL (8.7-10.4) Total Protein 6.4 g/dL (5.7-8.2) Lipid panel Test 12/15/24 05:58 Lipase 23 U/L (12-53) LFT Test 12/15/24 05:58 Alanine Aminotransferase (ALT) 79 U/L (7-40) H Alkaline Phosphatase 36 U/L (46-116) L Aspartate Amino Transferase (AST) 50 U/L (13-40) H Total Bilirubin 0.4 mg/dL (0.2-1.0) Microbiology Microbiology Date/Time Source Procedure Growth Status 12/14/24 06:52 Blood Blood Culture - Preliminary NO GROWTH AFTER 24 HOURS OF INCUBATION. Resulted 12/14/24 00:00 Stool Clostridium difficile Toxin Assay - Final Complete Labs and/or images reviewed: Labs reviewed by me Assessment/Plan Assessment/Plan Acute chest pain Projectile vomiting with nausea Colitis Dehydration Leukocytosis, unspecified Elevated liver enzymes Then: Continuing current management. Continuing with Zofran. Continuing with IV fluid. Continuing with IV antibiotic. Appreciate GI and Cardiology input. Waiting for cardiac catheterization. We will follow up with repeat CT scan abdomen pelvis with contrast per GI recommendation. Plan discussed with: Patient My Orders Orders - DEMETRICE HUGGINS MD Procedure Category Date Status Time * Gi Dvh Side Boss CONS 12/14/24 Transmitted 16:55 * Cardiology Consult CONS 12/14/24 Transmitted 16:55 Date of Service: Dec 15, 2024 Billing Provider: DEMETRICE HUGGINS MD Common Visit Codes: [id number] INP/OBS CARE(HIGH) DEMETRICE HUGGINS MD Dec 15, 2024 15:02
--- NOTE | 2024-12-15 17:20 | DVHINCON2 ---
Date Seen: Dec 15, 2024 Referring Physician MD Jovanna Reason for Consultation Elevated troponin, chest pain History of Present Illness This is a 44-year-old male patient who presents to the emergency room with chief complaint of abdominal pain and chest pain. The patient reports that the a bdominal pain began three days ago with associated nausea, vomiting, and diarrhea. The patient also reports chest pain which he describes as provoked by the abdominal pain, intermittent, burning in nature, left-sided with radiation across to the right side of his chest. Cardiology has now been consulted for further evaluation. Initial twelve lead electrocardiogram reveals normal sinus rhythm without any significant ST segment changes. Initial troponin level of 67ng/L with flat trend thereafter. Significant past medical history includes diverticulosis, anxiety, and obesity. Past Medical History Past medical history reviewed. No other significant than mentioned above. Past Surgical History Denies Family History: Diabetes mellitus G8 FATHER FH: kidney cancer G8 FATHER Hypercholesterolemia G8 MOTHER G8 FATHER Hypertension G8 MOTHER G8 FATHER Family History Family history reviewed. Social History Patient has a 15 pack-year history, quit smoking approximately 15 years ago Patient reports no alcohol intake in the last six months Patient denies all illicit drug use Allergies: Coded Allergies: NO KNOWN ALLERGIES (Unverified , 04/05/24) Home Meds Reported Medications Sertraline Hcl (Zoloft) 100 Mg Tab, 1 TAB PO DAILY, #30 TAB 5 Refills 12/14/24 Trazodone HCl (Trazodone Hydrochloride) 50 Mg Tab, 50 MG PO HS PRN for FOR INSOMNIA, TAB 12/14/24 Home Meds Home medications reviewed. Current Medications Current Medications Medications (Trade) Dose Ordered Sig/Harmony Route PRN Reason Start Time Stop Time Status Last Admin Sertraline HCl (Zoloft) 100 mg DAILY PO 12/15/24 10:00 12/15/24 09:45 Metronidazole 100 ml @ 100 mls/hr Q8HR IV 12/14/24 22:00 12/15/24 13:40 Trazodone HCl (Desyrel) 50 mg QHSP PRN PO FOR INSOMNIA 12/15/24 03:15 Review of Systems Constitutional: No symptom reported Ears, Nose, & Throat: No symptom reported Eyes: No symptom reported Neurological: No symptoms reported Pulmonary/Respiratory: No symptoms reported Cardiovascular: Chest pain Gastrointestinal: Abdominal pain Genitourinary: No symptom reported Musculoskeletal: No symptom reported Skin: No symptom reported Psychiatric: No symptom reported Endocrine: No symptom reported Hematologic/Lymphatic: No symptom reported Vital Signs Vital Signs Date Time Temp Pulse Resp B/P (MAP) Pulse Ox O2 Delivery O2 Flow Rate FiO2 12/15/24 17:00 98.2 69 16 123/73 (90) 95 98.2 12/15/24 08:00 Room Air* 0 21 Physical Exam General Appearance: Cooperative. Well-developed. Well-nourished. No acute distress. Pulmonary/Respiratory: Clear, bilateral breaths sounds. Cardiovascular/Chest: Regular rate and rhythm. Peripheral Pulses: 2+ Radial (R). 2+ Radial (L). 2+ Pedal (R). 2+ Pedal (L) Abdominal Exam: Normal bowel sounds. Ankle Exam: Negative ankle edema Lower extremities: Negative lower extremity edema Neuro/Mental Status: A/OX4, coherent. Thoughts/Psych: Normal thought pattern. Appropriate mood and affect. Good judgment and insight. Appearance: No acute distress. Skin Exam: Normal inspection. Normal color. Warm and dry. Labs/Diagnostic Data Labs Test 12/15/24 05:58 12/14/24 06:52 12/14/24 01:25 12/13/24 22:20 Range/Units White Blood Count 7.5 # 4.4-10.8 10^3/uL Red Blood Count 4.82 4.5-5.90 10^6/uL Hemoglobin 15.1 13.5-17.5 g/dL Hematocrit 43.7 41.0-53.0 % Mean Corpuscular Volume 90.7 80.0-100.0 fL Mean Corpuscular Hemoglobin 31.3 28.0-32.0 pg Mean Corpuscular Hemoglobin Concent 34.5 32.0-36.0 g/dL Red Cell Distribution Width 13.1 11.8-14.3 % Platelet Count 237 140-450 10^3/uL Mean Platelet Volume 7.5 6.9-10.8 fL Neutrophils (%) (Auto) 72.0 37.0-80.0 % Lymphocytes (%) (Auto) 15.7 10.0-50.0 % Monocytes (%) (Auto) 9.3 0.0-12.0 % Eosinophils (%) (Auto) 2.8 0.0-7.0 % Basophils (%) (Auto) 0.2 0.0-2.0 % Neutrophils # (Auto) 5.4 1.6-8.6 10 ^3/uL Lymphocytes # (Auto) 1.2 0.4-5.4 10 ^3/uL Monocytes # (Auto) 0.7 0-1.3 10 ^3/uL Eosinophils # (Auto) 0.2 0-0.8 10 ^3/uL Basophils # (Auto) 0 0-0.2 10 ^3/uL Nucleated Red Blood Cells 0.0 % Sodium Level 139 136-145 mmol/L Potassium Level 3.7 3.5-5.1 mmol/L Chloride Level 104 98-107 mmol/L Carbon Dioxide Level 27 20-31 mmol/L Anion Gap 8 5-15 Blood Urea Nitrogen 6 L 9-23 mg/dL Creatinine 0.86 0.700-1.30 mg/dL Glomerular Filtration Rate Calc 110 >90 mL/min BUN/Creatinine Ratio 7.0 L 10.0-20.0 Serum Glucose 115 H 74-106 mg/dL Calcium Level 9.0 8.7-10.4 mg/dL Total Bilirubin 0.4 0.2-1.0 mg/dL Aspartate Amino Transferase (AST) 50 H 13-40 U/L Alanine Aminotransferase (ALT) 79 H 7-40 U/L Alkaline Phosphatase 36 L 46-116 U/L Total Protein 6.4 5.7-8.2 g/dL Albumin 3.9 3.2-4.8 g/dL Lipase 23 12-53 U/L Lactic Acid Level 2.4 *H 0.4-2.0 mmol/L Troponin I High Sensitivity 57 *H </=54 ng/L Differential Total Cells Counted 100.0 100 Neutrophils % (Manual) 90 H 37.0-80.0 Band Neutrophils % (Manual) 4 Lymphocytes % (Manual) 2 L 10.0-50.0 Monocytes % (Manual) 4 0-12 Eosinophils % (Manual) 0 0-7 Basophils % (Manual) 0 0.0-2.0 Metamyelocytes % (manual) 0 Myelocytes % (Manual) 0 Promyelocytes % (Manual) 0 Blast Cells % (Manual) 0 Reactive Lymphocytes 0 Platelet Estimate Adequate Clumped Platelets Few Microbiology Date/Time Source Procedure Growth Status 12/14/24 06:52 Blood Blood Culture - Preliminary NO GROWTH AFTER 24 HOURS OF INCUBATION. Resulted 12/14/24 00:00 Stool Clostridium difficile Toxin Assay - Final Complete Assessment NSTEMI, likely type II Chest pain, likely noncardiac ?GERD Rule out structural heart disease History of diverticulosis Anxiety Obesity Plan/Recommendation We will continue with following plan/recommendations (Dr. Cabral): We will proceed with obtaining a transthoracic echocardiogram to evaluate cardiac function. Given the patient's clinical presentation, borderline/flat troponin level, and unremarkable twelve lead electrocardiogram, doubt ACS. Patient symptoms likely in keeping with acid reflux. We will initiate GI cocktail to see if patient's symptoms improve. We will consider further cardiac workup if symptoms do not improve with GI cocktail. In the meantime, continue with close cardiac surveillance. Thank you for allowing us to care for this patient. Please call with any questions or concerns. Critical care time spent: 40 minutes This medical document was created using an electronic medical record system with voice recognition software and computerized dictation system. Although this document has been carefully reviewed, there might still be some phonetic and typographical errors. Occasional wrong-word or ``sound-alike substitutions may have occurred due to the inherent limitations of voice recognition software. These areas are purely typographical due to imperfections of the software programs and do not reflect any compromise in the patient's medical care. Please read the chart carefully and recognize, using context, where these substitutions have occurred. Plan discussed with: Patient NYHA Physical activity limitations: NA Date of Service: Dec 15, 2024 Billing Provider: FANI GONGORA Cardiology Common Codes: [id number] INP/OBS CARE (High) Cardiology Consultation Codes: [id number] CONSULT <45MIN FANI GONGORA Dec 15, 2024 17:20
[2024-12-15] MEDS: MAALOX PLUS or MAALOX 30 ML PO ONE (18:28)
[2024-12-15] MEDS: LIDOCAINE VISCOUS 2% 15ML UD PO ONE (18:28)
--- NOTE | 2024-12-15 20:14 | DVHSR ---
APPROVED REPORT EXAM: Two-dimensional and M-mode echocardiogram with Doppler and color Doppler. Blood Pressure: 130/77 mmHg INDICATION Evaluate cardiac function RISK FACTORS Obesity: Height: 5'9", Weight: 255 DIMENSIONS LVDd5.3 (3.8-5.7cm)LA (2D)3.8 (1.9-4.0cm)Aortic Root3.8 (2.0-3.7cm) LVDs3.6 (2.5-4.0cm)LA (MM) (1.9-4.0cm)Aortic Cusp Exc2.4 (1.5-2.0cm) EF (%) 60.0 (55-70%)Rt. Atrium4.3 (1.9-4.0cm)Asc. Aorta cm IVSd1.3 (0.7-1.1cm)RV (D)4.5 (1.8-2.4cm) PWd1.2 (0.7-1.1cm) Mitral Valve MitralMitral Stenosis E wave0.99m/sMV Mean GR.mmHg A wave0.50m/sMV Peak GR.mmHg E/A ratio2.02D MVAcm2 DECEL [id number] 1/2 Timems Aortic Valve Aortic ValveAortic Stenosis V11.01m/Kyler Mean GR.3mmHg V21.16m/Kyler Peak GR.5mmHg LVOT Diameter2.4 (1.8-2.4cm)Doppler AVA3.94cm2 Pulmonic Valve V20.94m/s Tricuspid Valve TR Velocity2.24m/s [id number] LEFT VENTRICLE The left ventricle is normal size. There is borderline to mild asymmetric left ventricular hypertrophy. The left ventricle is normal in structure and function, LVEF 60%. Normal diastolic function. Normal wall motion. RIGHT VENTRICLE The right ventricle is mildly dilated. The right ventricular systolic function is normal. ATRIA The left atrial size is normal. The right atrium size is normal. MITRAL VALVE The mitral valve is grossly normal. Mitral regurgitation is trace. PULMONIC VALVE The pulmonic valve is not well visualized. There is mild pulmonic valvular regurgitation. TRICUSPID VALVE The tricuspid valve is grossly normal. There is trace to mild tricuspid regurgitation. AORTIC VALVE The aortic valve is trileaflet. There is trace aortic regurgitation. GREAT VESSELS There is borderline aortic root dilatation. PERICARDIAL EFFUSION No pericardial effusion. Other Information Technically limited study due to body habitus. Conclusion The left ventricle is normal size. There is borderline to mild asymmetric left ventricular hypertroph y. The left ventricle is normal in structure and function, LVEF 60%. Normal diastolic function. Ashley l wall motion. The right ventricle is mildly dilated. The right ventricular systolic function is normal. The left and right atrial size is normal. No significant valvular abnormalities. There is borderline aortic root dilatation. No pericardial effusion.
[2024-12-15] MEDS: traZODone HCL 50 MG TAB PO PRN (21:02)
[2024-12-16] VITALS (7 sets, daily range): BP systolic 120–138; BP diastolic 69–73; PULSE 50–65; RESP 17–20; TEMP 97.4–98.2; O2SAT 94–100
[2024-12-16] MEDS: PANTOPRAZOLE 40 MG TAB PO SCH (05:08)
--- NOTE | 2024-12-16 13:41 | DVHPN2 ---
Consult Progress Note Subjective Other Systems: Patient in sinus bradycardia at time of assessment. Patient noted to have a bradycardic episode last evening (12/15/24 at 1729) in which heart rate dropped down to 28 beats per minute. Reviewed strip with MD, patient in sinus bradycardia with nonconducted PACs. Objective vital signs Vital Sign Date Time Temp Pulse Resp B/P (MAP) Pulse Ox O2 Delivery O2 Flow Rate FiO2 12/16/24 09:00 97.5 65 17 123/69 (87) 100 97.5 12/16/24 08:00 Room Air* 0 21 Total Intake and Output 12/15/24 12/15/24 12/16/24 15:00 23:00 07:00 Intake Total 150 ml 800 ml 975 ml Output Total 400 ml Balance 150 ml 800 ml 575 ml medications Current Medications Medications Dose Ordered Sig/Harmony Route Start Time Stop Time Status Last Admin Dose Admin Ceftriaxone Sodium 50 ml @ 100 mls/hr DAILY@09 IV 12/14/24 06:00 12/16/24 08:58 100 MLS/HR Aspirin 81 mg DAILY PO 12/14/24 10:00 12/16/24 08:58 81 MG Ibuprofen 600 mg Q6HP PRN PO 12/14/24 05:45 12/15/24 09:57 600 MG Sodium Chloride 1,000 ml @ 60 mls/hr [id number] IV 12/14/24 05:45 12/15/24 15:24 60 MLS/HR Acetaminophen/ Hydrocodone Bitart 1 tab Q4HP PRN PO 12/14/24 05:45 12/15/24 06:53 1 TAB Ondansetron HCl 4 mg Q4HP PRN IV 12/14/24 05:45 12/14/24 16:40 4 MG Docusate Sodium 100 mg BIDPRN PRN PO 12/14/24 05:45 Morphine Sulfate 2 mg Q4HPRN PRN IV 12/14/24 05:45 12/16/24 04:06 2 MG Nitroglycerin 0.4 mg Q5MINP PRN SL 12/14/24 06:15 Morphine Sulfate 2 mg Q30M PRN IV 12/14/24 06:15 Sertraline HCl 100 mg DAILY PO 12/15/24 10:00 12/16/24 08:57 100 MG Metronidazole 100 ml @ 100 mls/hr Q8HR IV 12/14/24 22:00 12/16/24 13:23 100 MLS/HR Trazodone HCl 50 mg QHSP PRN PO 12/15/24 03:15 12/15/24 21:02 50 MG Pantoprazole Sodium 40 mg DAILY@0600 PO 12/16/24 06:00 12/16/24 05:08 40 MG Examination: GENERAL:Normal, LUNGS:Normal, CVS:Normal, NEURO:Normal laboratory and microbiology Laboratory Tests 12/15/24 05:58 Test 12/15/24 05:58 Range/Units Serum Glucose 115 H 74-106 mg/dL Problem List/Assessment/Plan Problem List/Assessment/Plan NSTEMI, rule out coronary ischemia ?GERD History of diverticulosis Anxiety Obesity Plan/Recommendation (Dr. Cabral): Patient seen and examined at bedside . Transthoracic echocardiogram reveals LVEF 60% with normal diastolic function and normal wall motion. Patient had an isolated event of chest pain at approximately 3:00 a.m. this morning. No significant ST segment changes seen on EKG that was done at that time. Given the patient's presentation at that time, and elevated troponin, we will offer the patient to undergo a nuclear stress test. The patient is agreeable. We will schedule the patient for a nuclear scan on 12/17/24 at first availability. Thank you for allowing us to care for this patient. Please call with any questions or concerns. This medical document was created using an electronic medical record system with voice recognition software and computerized dictation system. Although this document has been carefully reviewed, there might still be some phonetic and typographical errors. Occasional wrong-word or ``sound-alike substitutions may have occurred due to the inherent limitations of voice recognition software. These areas are purely typographical due to imperfections of the software programs and do not reflect any compromise in the patient's medical care. Please read the chart carefully and recognize, using context, where these substitutions have occurred. Plan discussed with: Patient Date of Service: Dec 16, 2024 Billing Provider: FANI GONGORA Common Visit Codes: [id number] INP/OBS CARE(HIGH) FANI GONGORA Dec 16, 2024 13:41
--- NOTE | 2024-12-16 15:25 | DVHPN2 ---
Progress Note - Dictate Date Seen: Dec 16, 2024 Medical Necessity Reason Pt with a Central, PICC or Fol: No Subjective Abdominal pains much better No fever no diarrhea no bleeding vital signs Vital Sign Date Time Temp Pulse Resp B/P (MAP) Pulse Ox O2 Delivery O2 Flow Rate FiO2 12/16/24 13:00 97.8 53 17 121/70 (87) 97 97.8 12/16/24 08:00 Room Air* 0 21 Total Intake and Output 12/15/24 12/15/24 12/16/24 15:00 23:00 07:00 Intake Total 150 ml 800 ml 975 ml Output Total 400 ml Balance 150 ml 800 ml 575 ml medications Current Medications Medications Dose Ordered Sig/Harmony Route Start Time Stop Time Status Last Admin Dose Admin Ceftriaxone Sodium 50 ml @ 100 mls/hr DAILY@09 IV 12/14/24 06:00 12/16/24 08:58 100 MLS/HR Aspirin 81 mg DAILY PO 12/14/24 10:00 12/16/24 08:58 81 MG Ibuprofen 600 mg Q6HP PRN PO 12/14/24 05:45 12/15/24 09:57 600 MG Sodium Chloride 1,000 ml @ 60 mls/hr [id number] IV 12/14/24 05:45 12/15/24 15:24 60 MLS/HR Acetaminophen/ Hydrocodone Bitart 1 tab Q4HP PRN PO 12/14/24 05:45 12/15/24 06:53 1 TAB Ondansetron HCl 4 mg Q4HP PRN IV 12/14/24 05:45 12/14/24 16:40 4 MG Docusate Sodium 100 mg BIDPRN PRN PO 12/14/24 05:45 Morphine Sulfate 2 mg Q4HPRN PRN IV 12/14/24 05:45 12/16/24 04:06 2 MG Nitroglycerin 0.4 mg Q5MINP PRN SL 12/14/24 06:15 Morphine Sulfate 2 mg Q30M PRN IV 12/14/24 06:15 Sertraline HCl 100 mg DAILY PO 12/15/24 10:00 12/16/24 08:57 100 MG Metronidazole 100 ml @ 100 mls/hr Q8HR IV 12/14/24 22:00 12/16/24 13:23 100 MLS/HR Trazodone HCl 50 mg QHSP PRN PO 12/15/24 03:15 12/15/24 21:02 50 MG Pantoprazole Sodium 40 mg DAILY@0600 PO 12/16/24 06:00 12/16/24 05:08 40 MG objective Abdomen is soft tenderness much better in the left lower quadrant no rigidity no guarding No masses felt Repeat CT scan with oral contrast failed to reveal any obstruction no diverticulitis but there is only just diverticulosis Lipase is normal laboratory and microbiology Laboratory Tests 12/15/24 05:58 Test 12/15/24 05:58 Range/Units Serum Glucose 115 H 74-106 mg/dL Assessment/Plan Patient is symptomatically much better with the antibiotic Possible diverticulitis Recommend soft diet low residue for the next four weeks and is careful about diet for the diverticulosis Thank you Dr. Comer Plan discussed with: Patient ABRAHAM COMER MD Dec 16, 2024 15:25
[2024-12-16] MEDS: LIDOCAINE VISCOUS 2% 15ML UD PO ONE (17:10)
[2024-12-16] MEDS: MAALOX PLUS or MAALOX 30 ML PO ONE (17:10)
--- NOTE | 2024-12-16 17:44 | ECG ---
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
--- NOTE | 2024-12-16 23:39 | DVHPN2 ---
Subjective The patient is seen and examined at bedside. Still waiting for stress test. Reviewed: Care Plan, H&P, Labs, Medications, Previous Orders Changes from previous H/P or p: No Changes Eyes: No Pain, No Vision change, No Conjunctivae inflammation, No Eyelid inflammation, No Other, No Redness ENT: No Ear pain, No Ear discharge, No Nose pain, No Nose discharge, No Nose congestion, No Mouth pain, No Mouth swelling, No Throat pain, No Throat swelling, No Other Cardiovascular: Chest Pain; No Palpitations, No Orthopnea, No Paroxysmal Noc. Dyspnea, No Edema, No Lt Headedness, No Other Respiratory: No Cough, No Dry, No Shortness of breath, No SOB with excertion, No Wheezing, No Hemoptysis, No Pleuritic Pain, No Sputum, No Other Gastrointestinal: Nausea, Vomiting, Abdominal Pain, Diarrhea; No Constipation, No Melena, No Hematochezia, No Other Genitourinary: No Dysuria, No Frequency, No Incontinence, No Hematuria, No Retention, No Other Musculoskeletal: No other, No neck pain, No shoulder pain, No arm pain, No back pain, No hand pain, No leg pain, No foot pain Skin: No Rash, No Lesions, No Jaundice, No Bruising, No Other Objective Vitals Vital Signs Date Time Temp Pulse Resp B/P (MAP) Pulse Ox O2 Delivery O2 Flow Rate FiO2 12/16/24 20:00 62 Room Air* 0 21 12/16/24 17:00 97.4 19 121/70 (87) 98 97.4 Intake/Output Intake and Output 12/16/24 07:00 Intake Total 1925 ml Output Total 400 ml Balance 1525 ml Intake Oral 1575 ml IV Total 350 ml Output Urine Total 400 ml # Voids 5 # Bowel Movements 1 General Appearance: Alert, Oriented X3, Cooperative, No acute distress HEENT: Atraumatic, PERRLA, EOMI, Mucous membr. moist/pink Lungs: Clear to auscultation, Normal air movement Cardiovascular: Regular rate, Normal S1, Normal S2, No murmurs, Gallops, Rubs Abdomen: Normal bowel sounds, Soft, No tenderness Neuro: Cranial nerves 3-12 NL Psych/Mental Status: Mental status NL Medications Current Medications Medications Dose Ordered Sig/Harmony Route Start Time Stop Time Status Last Admin Dose Admin Ceftriaxone Sodium 50 ml @ 100 mls/hr DAILY@09 IV 12/14/24 06:00 12/16/24 08:58 100 MLS/HR Aspirin 81 mg DAILY PO 12/14/24 10:00 12/16/24 08:58 81 MG Ibuprofen 600 mg Q6HP PRN PO 12/14/24 05:45 12/15/24 09:57 600 MG Sodium Chloride 1,000 ml @ 60 mls/hr [id number] IV 12/14/24 05:45 12/15/24 15:24 60 MLS/HR Acetaminophen/ Hydrocodone Bitart 1 tab Q4HP PRN PO 12/14/24 05:45 12/15/24 06:53 1 TAB Ondansetron HCl 4 mg Q4HP PRN IV 12/14/24 05:45 12/14/24 16:40 4 MG Docusate Sodium 100 mg BIDPRN PRN PO 12/14/24 05:45 Morphine Sulfate 2 mg Q4HPRN PRN IV 12/14/24 05:45 12/16/24 04:06 2 MG Nitroglycerin 0.4 mg Q5MINP PRN SL 12/14/24 06:15 Morphine Sulfate 2 mg Q30M PRN IV 12/14/24 06:15 Sertraline HCl 100 mg DAILY PO 12/15/24 10:00 12/16/24 08:57 100 MG Metronidazole 100 ml @ 100 mls/hr Q8HR IV 12/14/24 22:00 12/16/24 21:26 100 MLS/HR Trazodone HCl 50 mg QHSP PRN PO 12/15/24 03:15 12/16/24 21:26 50 MG Pantoprazole Sodium 40 mg DAILY@0600 PO 12/16/24 06:00 12/16/24 05:08 40 MG Laboratory Results Laboratory Tests 12/15/24 05:58 Microbiology Microbiology Date/Time Source Procedure Growth Status 12/14/24 06:52 Blood Blood Culture - Preliminary NO GROWTH AFTER 48 HOURS OF INCUBATION. Resulted 12/14/24 00:00 Stool Clostridium difficile Toxin Assay - Final Complete Labs and/or images reviewed: Labs reviewed by me Assessment/Plan Assessment/Plan Acute chest pain Projectile vomiting with nausea Colitis Dehydration Leukocytosis, unspecified Elevated liver enzymes Continuing current management. Waiting for stress test to be done. CT abdomen pelvis with contrast only review diverticulosis without diverticulitis. Continuing IV fluid. Echo reviewed showed normal EF of 60% with mild LVH This medical document was created using an electronic medical record system with M*M [employer] direct computerized dictation system. Although this document has been carefully reviewed, there may still be some phonetic and typographical errors. These areas are purely typographical due to imperfections of the software programs, and do not reflect any compromise in the patient's medical care. Plan discussed with: Patient My Orders Orders - DEMETRICE HUGGINS MD Procedure Category Date Status Time Stat Ekg With Cp NEDRA 12/16/24 In Process 03:21 Date of Service: Dec 16, 2024 Billing Provider: DEMETRICE HUGGINS MD Common Visit Codes: [id number] INP/OBS CARE(HIGH) DEMETRICE HUGGINS MD Dec 16, 2024 23:39
[2024-12-17 01:00] VITALS: BP 101/51; PULSE 62; RESP 20; TEMP 98; O2SAT 95
[2024-12-17 05:00] VITALS: BP 122/79; PULSE 56; RESP 20; TEMP 97.6; O2SAT 96
[2024-12-17 06:17] LABS: Basophils # (auto) 0 10 ^3/uL (0-0.2); Basophils % (auto) 0.5 % (0.0-2.0); Eosinophils # (auto) 0.3 10 ^3/uL (0-0.8); Hematocrit 44.2 % (41.0-53.0); Hemoglobin 15.5 g/dL (13.5-17.5); Lymphocytes % (auto) 36.5 % (10.0-50.0); Mean Corpuscular Hemoglobin 31.3 pg (28.0-32.0); Mean Corpuscular Hgb Conc. 34.9 g/dL (32.0-36.0); Mean Corpuscular Volume 89.5 fL (80.0-100.0); Monocytes # (auto) 0.4 10 ^3/uL (0-1.3); Monocytes % (auto) 7.1 % (0.0-12.0); Neutrophils # (auto) 2.7 10 ^3/uL (1.6-8.6); Neutrophils % (auto) 50.9 % (37.0-80.0); Nucleated Red Blood Cells % 0.1 %; Platelet Count (auto) 266 10^3/uL (140-450); Red Blood Cells 4.94 10^6/uL (4.5-5.90); Red Cell Distribution Width 13.3 % (11.8-14.3); White Blood Cell 5.3 10^3/uL (4.4-10.8)
[2024-12-17 06:32] LABS: Potassium 4.1 mmol/L (3.5-5.1); Sodium 142 mmol/L (136-145)
[2024-12-17 06:33] LABS: Anion Gap 5 (5-15); Carbon Dioxide 27 mmol/L (20-31)
[2024-12-17 06:34] LABS: Calcium 9.2 mg/dL (8.7-10.4)
[2024-12-17 06:38] LABS: BUN/Creatinine Ratio 6.4 (10.0-20.0)
[2024-12-17 06:42] LABS: Blood Urea Nitrogen 6 mg/dL (9-23); Chloride 110 mmol/L (98-107); Glucose 131 mg/dL (74-106)
[2024-12-17 07:45] VITALS: PULSE 50
[2024-12-17] MEDS: REGADENOSON 0.4 MG/5 ML SYRG IV ONE ×2 (09:27→09:28)
--- NOTE | 2024-12-17 10:50 | ECG ---
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
--- NOTE | 2024-12-17 12:10 | DVHDS2 ---
Discharge Summary Date of Admission Dec 14, 2024 at 06:14 Date of Discharge: Dec 17, 2024 Admitting Diagnosis Acute chest pain Projectile vomiting with nausea Colitis Dehydration Leukocytosis, unspecified Elevated liver enzymes Labs/Diagnostic Data: Laboratory Results Test 12/17/24 04:59 12/15/24 05:58 12/14/24 06:52 12/14/24 01:25 White Blood Count 5.3 10^3/uL (4.4-10.8) Red Blood Count 4.94 10^6/uL (4.5-5.90) Hemoglobin 15.5 g/dL (13.5-17.5) Hematocrit 44.2 % (41.0-53.0) Mean Corpuscular Volume 89.5 fL (80.0-100.0) Mean Corpuscular Hemoglobin 31.3 pg (28.0-32.0) Mean Corpuscular Hemoglobin Concent 34.9 g/dL (32.0-36.0) Red Cell Distribution Width 13.3 % (11.8-14.3) Platelet Count 266 10^3/uL (140-450) Mean Platelet Volume 7.7 fL (6.9-10.8) Neutrophils (%) (Auto) 50.9 % (37.0-80.0) Lymphocytes (%) (Auto) 36.5 % (10.0-50.0) Monocytes (%) (Auto) 7.1 % (0.0-12.0) Eosinophils (%) (Auto) 5.0 % (0.0-7.0) Basophils (%) (Auto) 0.5 % (0.0-2.0) Neutrophils # (Auto) 2.7 10 ^3/uL (1.6-8.6) Lymphocytes # (Auto) 2.0 10 ^3/uL (0.4-5.4) Monocytes # (Auto) 0.4 10 ^3/uL (0-1.3) Eosinophils # (Auto) 0.3 10 ^3/uL (0-0.8) Basophils # (Auto) 0 10 ^3/uL (0-0.2) Nucleated Red Blood Cells 0.1 % Sodium Level 142 mmol/L (136-145) Potassium Level 4.1 mmol/L (3.5-5.1) Chloride Level 110 mmol/L (98-107) Carbon Dioxide Level 27 mmol/L (20-31) Anion Gap 5 (5-15) Blood Urea Nitrogen 6 mg/dL (9-23) Creatinine 0.94 mg/dL (0.700-1.30) Glomerular Filtration Rate Calc 103 mL/min (>90) BUN/Creatinine Ratio 6.4 (10.0-20.0) Serum Glucose 131 mg/dL (74-106) Calcium Level 9.2 mg/dL (8.7-10.4) Total Bilirubin 0.4 mg/dL (0.2-1.0) Aspartate Amino Transferase (AST) 50 U/L (13-40) Alanine Aminotransferase (ALT) 79 U/L (7-40) Alkaline Phosphatase 36 U/L (46-116) Total Protein 6.4 g/dL (5.7-8.2) Albumin 3.9 g/dL (3.2-4.8) Lipase 23 U/L (12-53) Lactic Acid Level 2.4 mmol/L (0.4-2.0) Troponin I High Sensitivity 57 ng/L (</=54) Test 12/13/24 22:20 Differential Total Cells Counted 100.0 (100) Neutrophils % (Manual) 90 (37.0-80.0) Band Neutrophils % (Manual) 4 Lymphocytes % (Manual) 2 (10.0-50.0) Monocytes % (Manual) 4 (0-12) Eosinophils % (Manual) 0 (0-7) Basophils % (Manual) 0 (0.0-2.0) Metamyelocytes % (manual) 0 Myelocytes % (Manual) 0 Promyelocytes % (Manual) 0 Blast Cells % (Manual) 0 Reactive Lymphocytes 0 Platelet Estimate Adequate Clumped Platelets Few Other Laboratory Tests 12/17/24 04:59 Brief Hx & Hospital Course: This is a 44 years old male past medical history of diverticulitis come into emergency department with chief complaint of abdominal pain. Patient also complained of chest pain get worse that prompt to this visit. The patient was found to have WBC of 16.9, AST 44, ALT 88, lipase 36, troponin level 65 and lactic acid level of 2.6. The patient was started on IV antibiotic with Rocephin. The patient was seen by forklift truck operator who did the echo showed normal EF at 60% and mild LVH. Subsequently the patient has a cardiac stress test done today with negative for ischemic change. Patient does have basal inferolateral wall fixed defect. No Further cardiac intervention per forklift truck operator. The patient also had CT abdomen pelvis with contrast and only showed diverticulosis without diverticulitis. The patient was advice by GI specialist to increase food with high fiber. Today I am going to discharge him home. Advised him to follow up with primary care physician 1-2 weeks. Activity as tolerated. Diet per home diet. Increase fiber intake Physical exam: HEENT: Normocephalic atraumatic pupils equal react to light and accommodation. Extraocular muscles intact, conjunctiva pink, oropharynx moist, no thrush, no exudate. Lymphatic: No lymphadenopathy Cardiovascular exam: S1, S2 was heard. No murmurs, rubs, gallops Lung: Clear on auscultation bilaterally, no wheeze, rale, rhonchi. GI: Abdominal soft, nondistended, nontenderness, positive bowel sounds. Extremity: No crepitus, cyanosis, edema. Pedal pulses present bilateral. Full range of motion. Skin: Normal turgor, no rash. Psych: Alert, oriented x3. Neurology: No focal deficits, cranial nerve II to XII grossly intact. This medical document was created using an electronic medical record system with M*M [employer] direct computerized dictation system. Although this document has been carefully reviewed, there may still be some phonetic and typographical errors. These areas are purely typographical due to imperfections of the software programs, and do not reflect any compromise in the patient's medical care. Condition at Discharge: Stable Final Diagnosis/Problems List Acute chest pain Projectile vomiting with nausea Diverticulosis Dehydration Leukocytosis, unspecified Elevated liver enzymes Discharge Disposition: Home Discharge Statement: "Patient was advised to return to the ER or call 911 if any headaches, dizziness, shortness of breath, chest pain, abdominal pain, bleeding, fevers, or worsening of medical condition. Patient was counseled about treatment plan, medications, possible side effects, patientverbalized understanding. All questions were answered to the best of my ability. This discharge took greater then 30 minutes in planning, reviewing documentation, counseling the patient, and discussing with other team members." ASSESSMENT ASSESSMENT Assessment Date of Service: Dec 17, 2024 Billing Provider: DEMETRICE HUGGINS MD Common Visit Codes: [id number]-YLE/OBS DISCH DAY >30min DEMETRICE HUGGINS MD Dec 17, 2024 12:10
--- NOTE | 2024-12-17 12:14 | DVHSR ---
APPROVED REPORT Exam: Nuclear Stress Test Indication: CAD Stress Tech: Soo Ahmadi Ht: 5 ft 9 in Wt: 246 lbs BSA: 2.26 m2 HR: 60 bpm BP: 118/79 mmHg BMI: 36.32 Medical History Medical History: BRADYCARDIA Allergies: NKA Stress Test Details Stress Test: Pharmacologic stress testing performed using 0.4 mg of regadenoson per 5 mL given IV ov er 10 seconds. HR Resting HR: 60 bpmMax Heart Rate (APMHR): 177.375802 bpm Max HR Achieved: 121 bpmTarget HR (85% APMHR): 150.721825 bpm % of APMHR: 68.36 Recovery HR: 72 bpm HR response to stress: Normal HR response to stress BP Resting BP: 118/79 mmHg Recovery BP: 126/84 mmHg BP response to stress: Normal blood pressure response to stress. ECG Resting ECG: Sinus Rhythm, LBBB Clinical Reason for Termination: Completed protocol Stress ECG Conclusion LVEF is 51% which is low normal, correlate to echo GI artifact inferior noted basal inferolateral wall fixed defect no significant ischemia noted NM EXAM: Myocardial Perfusion REST/STRESS Imaging Protocol: Rest Tc-99m/Stress Tc-99m 1 day Resting Data Rest SPECT myocardial perfusion imaging was performed in supine position 30 minutes following the int ravenous injection of 11.2 mCi of Tc-99m Sestamibi. Time of rest injection: 0815 Time of rest imagin Administration Route: IV Administration Site: Left Arm Pharmacologic Stress Pharmacologic stress test was performed by injecting Regadenoson 0.4 mg IV push followed by the intra venous injection of 31.2 mCi of Tc-99m Sestamibi. Time of stress injection: 0930 Time of stress imagin Administration Route: IV Administration Site: Left Hand Gated Stress SPECT was performed 30 minutes after stress injection. The images were gated to evaluate regional wall motion and calculate left ventricular ejection fracti on. Nuclear Conclusion Nuclear Findings: negative for ischemia Left Ventricular Function: normal LVEF is 51% which is low normal, correlate to echo GI artifact inferior noted basal inferolateral wall fixed defect no significant ischemia noted
[2024-12-17 13:00] VITALS: BP 124/76; PULSE 52; RESP 18; TEMP 98.2; O2SAT 97
--- NOTE | 2024-12-17 13:57 | ECG ---
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
--- NOTE | 2024-12-17 14:49 | DVHPN2 ---
Consult Progress Note Date Seen: Dec 17, 2024 Subjective Review of Systems: CVS:Abnormal, RESPIRATORY:Normal, NEURO:Normal Other Systems: C/o intermittent chest pressure otherwise cardiac stable Objective vital signs Vital Sign Date Time Temp Pulse Resp B/P (MAP) Pulse Ox O2 Delivery O2 Flow Rate FiO2 12/17/24 07:45 Room Air* 0 21 12/17/24 07:45 50 12/17/24 05:00 97.6 20 122/79 (93) 96 97.6 Total Intake and Output 12/16/24 12/16/24 12/17/24 15:00 23:00 07:00 Intake Total 150 ml 750 ml 650 ml Balance 150 ml 750 ml 650 ml medications Current Medications Medications Dose Ordered Sig/Harmony Route Start Time Stop Time Status Last Admin Dose Admin Ceftriaxone Sodium 50 ml @ 100 mls/hr DAILY@09 IV 12/14/24 06:00 12/17/24 10:10 100 MLS/HR Aspirin 81 mg DAILY PO 12/14/24 10:00 12/17/24 10:10 81 MG Ibuprofen 600 mg Q6HP PRN PO 12/14/24 05:45 12/15/24 09:57 600 MG Sodium Chloride 1,000 ml @ 60 mls/hr [id number] IV 12/14/24 05:45 12/17/24 00:25 60 MLS/HR Acetaminophen/ Hydrocodone Bitart 1 tab Q4HP PRN PO 12/14/24 05:45 12/15/24 06:53 1 TAB Ondansetron HCl 4 mg Q4HP PRN IV 12/14/24 05:45 12/14/24 16:40 4 MG Docusate Sodium 100 mg BIDPRN PRN PO 12/14/24 05:45 Morphine Sulfate 2 mg Q4HPRN PRN IV 12/14/24 05:45 12/16/24 04:06 2 MG Nitroglycerin 0.4 mg Q5MINP PRN SL 12/14/24 06:15 Morphine Sulfate 2 mg Q30M PRN IV 12/14/24 06:15 Sertraline HCl 100 mg DAILY PO 12/15/24 10:00 12/17/24 10:11 100 MG Metronidazole 100 ml @ 100 mls/hr Q8HR IV 12/14/24 22:00 12/17/24 05:06 100 MLS/HR Trazodone HCl 50 mg QHSP PRN PO 12/15/24 03:15 12/16/24 21:26 50 MG Pantoprazole Sodium 40 mg DAILY@0600 PO 12/16/24 06:00 12/17/24 05:18 40 MG Examination: LUNGS:Normal, CVS:Normal, NEURO:Normal laboratory and microbiology Laboratory Tests 12/17/24 04:59 Test 12/17/24 04:59 Range/Units Serum Glucose 131 H 74-106 mg/dL Problem List/Assessment/Plan Problem List/Assessment/Plan NSTEMI, rule out coronary ischemia Rule out GERD/RILEY History of diverticulosis Anxiety Obesity Plan/Recommendation (Dr. South) Transthoracic echocardiogram reveals LVEF 60% with normal diastolic function and normal wall motion. Cardiolite stress test, non-ischemic (see report). No significant ST segment changes seen on 12-lead electrocardiograms. Notified of bradycardic events during sleep, consider an outpatient sleep study to rule out obstructive sleep apnea. Consider an outpatient event monitor in the setting of a negative sleep study. There is no further cardiac work-up indicated at this time. Kindly call if in need to re-consult. Thank you for allowing us to care for this patient. This medical document was created using an electronic medical record system with voice recognition software and computerized dictation system. Although this document has been carefully reviewed, there might still be some phonetic and typographical errors. Occasional wrong-word or ``sound-alike substitutions may have occurred due to the inherent limitations of voice recognition software. These areas are purely typographical due to imperfections of the software programs and do not reflect any compromise in the patient's medical care. Please read the chart carefully and recognize, using context, where these substitutions have occurred. Plan discussed with: Patient, Spouse, Other Date of Service: Dec 17, 2024 Billing Provider: FLAQUITA LEE Cardiology Common Codes: 54336-[id number] FLAQUITA LEE Dec 17, 2024 14:49
== END 2024-12-17 15:35 | disposition home or self-care (01) | DRG 391 ==
LOC: ER 22:12 → EEVIPCON 22:12 → TELE 12-14 06:14 → TELE-WESTW 12-14 09:32
PROVIDERS: ADMIT Nurse Practitioner Family; ATTEND Internal Medicine
DX: K52.9 Noninfective gastroenteritis and colitis, unspecified (principal); I21.A1 Myocardial infarction type 2; E86.0 Dehydration; K21.9 Gastro-esophageal reflux disease without esophagitis; F41.9 Anxiety disorder, unspecified; E66.9 Obesity, unspecified; K57.30 Diverticulosis of large intestine without perforation or abscess without bleeding; Z83.3 Family history of diabetes mellitus; Z80.51 Family history of malignant neoplasm of kidney; Z82.49 Family history of ischemic heart disease and other diseases of the circulatory system; Z68.36 Body mass index [BMI] 36.0-36.9, adult
CPT/HCPCS: 36415; 71045; 74176; 74177; 78452; 80048; 80053; 83605; 83690; 84484; 85007; 85025; 85027; 87040; 87493; 93005; 93017; 93306; G0378; J2405; J2470; J3490